=== PATIENT | female | born 1970 | race Caucasian/White ===

== ENCOUNTER 2016-10-28 18:04 | Observation (INO) | payer SELFPAY ==
--- NOTE | 2016-10-28 18:18 | ED Physician Documentation ---
General Adult - HISTORIAN Historian: patient (patient has a known history of alcohol dependency or a number of years. Patient was admitted to [facility] treatment program several years ago however only stayed for two weeks. Patient continues to drink vodka an unknown amount on a daily basis. Patient has been able to hold a job down. Patient has had some trimmers when she is withdrawn from alcohol previously. There is no history of DVT better-known from the family. Today the patient called [facility] to be admitted. However after she did that she started drinking heavily. On the way up to [facility] she continued to drink. Patient became beligerent trying to open the door and leave the car while it was moving. When the patient arrived at [facility] she was too intoxicated and agitated to be admitted. Patient referred to the ED for further evaluation.) - HPI Chief Complaint: Altered Mental Status Onset: hours Timing: still present Severity: moderate Modifying Factors: patient is not able to tell me how much alcohol should face on a daily basi Further Comments: yes - ROS CONST: denies: fever, chills CVS/RESP: none - PAST HX Past History: renal disease (Hep c taking Harvoni,), other (depression) Other History: other (patient denies any liver problems or other medical problems associated with alcoholism) Surgeries/Procedures: none (Bariatric surgery) Immunizations: referred to PCP Allergies/Adverse Reactions: Allergies Allergy/AdvReac Type Severity Reaction Status Date / Time No Known Allergies Allergy Verified 10/28/16 18:08 Home Medications: Ambulatory Orders Medication Instructions Recorded Cyclobenzaprine HCl [Flexeril] 10 mg PO TID PRN 10/28/16 Hydroxyzine Pamoate 50 mg PO TID 10/28/16 Ledipasvir/Sofosbuvir [Harvoni 1 each PO DAILY 10/28/16 90-400 mg Tablet] Pantoprazole Sodium [Protonix] 40 mg PO 0700 10/28/16 Sertraline HCl [Zoloft] 100 mg PO DAILY 10/28/16 - SOCIAL HX Smoking History: less than 1 pack/day (1/2 ppd) Alcohol Use: heavy Drug Use: marijuana, other (smoking crack) - FAMILY HX Family History: No - REVIEWED ASSESSMENTS Nursing Assessment Reviewed: Yes Vitals Reviewed: Yes Progress - Progress Progress: Patient was very intoxicated and belligerent on admission. Patient was somewhat combative. Initially patient was refusing to be admitted. Patient's family members were refusing to take her back home. She could not be admitted to long-term because she was not fit for confinement. Patient Stated that she was going to walk back to [place]. Patient was advised that it was close to 100 outside and that this is not a pardo idea. Patient continued to insist upon doing it. Patient appeared to be in danger of harming herself. After discussing the options with her family members it was elective for the patient a four- point restraint. Patient was monitored closely for any possible injury. Patient was given IV fluids. Patient then became calm and more ooperative and agrees to be admitted. The restraints were then removed. Patient remained cooperative. General Adult Physical Exam - PHYSICAL EXAM GENERAL APPEARANCE: aggitatd EENT: eye inspection normal, ENT inspection normal, pharynx normal NECK: normal inspection, thyroid normal, supple RESPIRATORY: no resp distress, chest non-tender CVS: reg rate & rhythm, heart sounds normal ABDOMEN: soft, no organomegaly, normal bowel sounds, no distension, non-tender SKIN: warm/dry, normal color EXTREMITIES: non-tender NEURO: CN's nml as tested Discharge Clincal Impression: Alcohol dependency Acute alcoholic intoxication Qualifiers: Complication of substance-induced condition: uncomplicated Qualified Code(s): F10.920 - Alcohol use, unspecified with intoxication, uncomplicated Home Medications: Ambulatory Orders Cyclobenzaprine HCl [Flexeril] 10 mg PO TID PRN 10/28/16 Hydroxyzine Pamoate 50 mg PO TID 10/28/16 Ledipasvir/Sofosbuvir [Harvoni 90-400 mg Tablet] 1 each PO DAILY 10/28/16 Pantoprazole Sodium [Protonix] 40 mg PO 0700 10/28/16 Sertraline HCl [Zoloft] 100 mg PO DAILY 10/28/16 Condition: Stable Decision to Admit: [id number] Date of Decison to Admit: 10/28/16 Decision Time: 21:00
[2016-10-28] MEDS ORDERED: THIAMINE HCL 100 MG/ML 2ML VIAL ONE (18:27)
[2016-10-28] MEDS ORDERED: 0.9 % SODIUM CHLORIDE 1,000 ML IV ONE ×2 (18:27→21:22)
[2016-10-28] MEDS ORDERED: MVI, ADULT NO.1 WITH VIT K 10 ML VIAL IV ONE (18:27)
[2016-10-28] MEDS ORDERED: FOLIC ACID 5 MG/1 ML ONE (18:27)
[2016-10-28] MEDS ORDERED: LORazepam 2 MG/ML VIAL IVP ONE ×2 (19:17→19:39)
[2016-10-28] MEDS ORDERED: LORazepam 2 MG/ML VIAL ONE (19:20)
[2016-10-28 19:33] LABS: BASOPHILS % 1.1 (0.0-1.5); EOSINOPHILS % 1.8 % (0.0-6.8); MEAN CORPUSCULAR HEMOGLOBIN 27.9 pg (28.0-34.0); MEAN CORPUSCULAR VOLUME 86.1 fl (80.0-100.0); MONOCYTES % 4.6 % (0.0-11.0); NEUTROPHILS # 3.8 # k/uL (1.4-7.7)
[2016-10-28 19:47] LABS: eGFR (African) > 60; eGFR (Non-African) > 60
[2016-10-28] MEDS: 0.9 % SODIUM CHLORIDE 1,000 ML IV SCH (20:19)
[2016-10-28 21:25] VITALS: BMI 30.1
[2016-10-28] MEDS ORDERED: THIAMINE HCL 100 MG, MVI, ADULT NO.1 WITH VIT K 10 ML, FOLIC ACID 5 MG in 0.9 % SODIUM ... IV SCH ×4 (23:00)
[2016-10-29] MEDS ORDERED: SERTRALINE HCL 50 MG TABLET ONE (05:28)
[2016-10-29] MEDS ORDERED: PANTOPRAZOLE SODIUM 40 MG TABLET ONE (05:28)
[2016-10-29] MEDS: 0.9 % SODIUM CHLORIDE 1,000 ML IV SCH (05:52)
[2016-10-29 05:55] VITALS: BP 124/85
[2016-10-29] MEDS ORDERED: PANTOPRAZOLE SODIUM 40 MG TABLET PO SCH (07:00)
[2016-10-29 08:48] LABS: eGFR (African) > 60; eGFR (Non-African) > 60
[2016-10-29] MEDS ORDERED: SERTRALINE HCL 50 MG TABLET PO SCH (09:00)
[2016-10-29] MEDS ORDERED: ACETAMINOPHEN 325 MG TABLET PO PRN (09:20)
[2016-10-29] MEDS ORDERED: CALCIUM CARB 500 MG TAB.CHEW ONE (09:21)
[2016-10-29] MEDS ORDERED: ACETAMINOPHEN 325 MG TABLET ONE (09:21)
--- NOTE | 2016-10-29 09:23 | History and Physical Report ---
History of Present Illnes - History of Present Illness Reason for Visit: Etoh intoxication and adgitation. History of Present Illness: 45 year old female admitted to the hospital through ER for acute intoxication and agitation. She initially presented to [facility] and was unable to corporate with the interview for admission due to acute intoxication. She was referred here for additional workup. In the emergency room she was very agitated and was given Ativan, and fluids. She was place in restraints for a short period of time as requested by the family. She was admitted to the floor for further observation overnight. At the time of the interview she is very corporative and able to discuss her medical and substance use history. She states [facility] use. She notes she called [facility] yesterday and then started drinking heavily. She continued to drink until she arrived at the facility. She states she has used alcohol for many years and was admitted to [facility] once previously. At that time she notes she only stayed for 2 weeks. She notes she wants to get clean this time and is hoping she can go to [facility] today to start that process. She notes she is having moderate reflux symptoms and a moderate headache this morning, but is feeling well otherwise and denies any other concerns today. - Past Medical History Cardiac: denies: HTN, Syncope, Hyperlipidemia Pulmonary: denies: Asthma, COPD [employer]ATOR: denies: Peripheral neuropathy Gastrointestinal: GERD (on protonix ), Other (Hepatitis C - on Harvoni). denies : Constipation Psych: Anxiety (takes vistaril ) Musculoskeletal: Other (Restless leg syndrome ) Infectious Disease: Other (Hepatitis C) ENT: denies: Sinusitis Renal/: denies: Chronic renal insuff Endocrine: denies: Diabetes, Hypothyroidism Dermatology: denies: Cellulitis - Past Surgical History Past Surgical History: Cholecystectomy, Other (gasrtic bypass) - Past Social History Smoke: No Alcohol: Heavy Drugs: None Lives: Alone Domestic Violence: Negative - Health Maintenance Health Maintenance: denies: Influenza Vaccine Influenza Vaccine: No (Patient declines at time of interview) Pneumonia Vaccine: No (Not of age, no comorbidities that would indicate earlier vaccination) Resuscitation Status: Resusciation Status Resuscitation Status Full Code Review of Systems - Review of Systems Constitutional: negative: Fever, Chills Eyes: negative: pain, vision change ENT: negative: Ear Pain, Ear Discharge Respiratory: negative: Cough, Shortness of Breath Cardiovascular: negative: Chest Pain Gastrointestinal: Nausea, Other (heart burn today - history of GERD). negative : Vomiting Genitourinary: negative: Dysuria Musculoskeletal: negative: Arm Pain, Leg Pain Skin: negative: Rash, Jaundice Neurological: negative: Weakness, Numbness, Incoordination, Confusion, Seizures - Medications/Allergies Allergies/Adverse Reactions: Allergies Allergy/AdvReac Type Severity Reaction Status Date / Time Sulfa (Sulfonamide Allergy Hives Verified 10/29/16 09:27 Antibiotics) Home Medications: Home Medications Cyclobenzaprine HCl [Flexeril] 10 mg PO TID PRN 10/28/16 Hydroxyzine Pamoate 50 mg PO TID 10/28/16 Ledipasvir/Sofosbuvir [Harvoni 90-400 mg Tablet] 1 each PO DAILY 10/28/16 Pantoprazole Sodium [Protonix] 40 mg PO 0700 10/28/16 Sertraline HCl [Zoloft] 100 mg PO DAILY 10/28/16 Current Inpatient Medications: Current Inpatient Medications Sodium Chloride (Normal Saline) 1,000 mls @ 100 mls/hr IV .Q10H [facility] Last Admin: 10/29/16 05:52 Dose: 100 mls/hr Pantoprazole Sodium (Protonix) 40 mg PO 07 [facility] Last Admin: 10/29/16 05:54 Dose: 40 mg Sertraline HCl (Zoloft) 100 mg PO DAILY [facility] Last Admin: 10/29/16 08:48 Dose: 100 mg Exam - Exam Vital Signs: Vital Signs (72 hours) 10/28/16 10/28/16 10/29/16 21:00 21:06 02:00 Temperature 98.2 F 97.6 F 98.4 F Pulse Rate [ 82 104 H 77 Right Pulse ox] Respiratory 16 18 18 Rate Blood Pressure 102/66 95/55 101/64 [Right Arm] O2 Sat by Pulse 98 95 96 Oximetry 10/29/16 10/29/16 05:54 09:00 Temperature 98.3 F Pulse Rate [ 92 H 92 H Right Pulse ox] Respiratory 16 16 Rate Blood Pressure 124/85 [Right Arm] O2 Sat by Pulse 96 Oximetry General: Alert, Oriented to Person, Oriented to Place, Oriented to Time, Cooperative HEENT: Atraumatic, EOMI, Nose Mucous membr. moist/[place], Dentition Normal Neck: Normal Range of Motion Lungs: Clear to auscultation, Normal air movement, Speaks full Sentences. No: Respiratory Distress Cardiovascular: Regular rate. No: Murmur Abdomen: Normal bowel sounds, Soft. No: No tenderness (MIld epigastric tenderness - HX GERD) Integumentary: Normal, [place], Warm, Dry. No: Jaundiced Extremities: No clubbing, No cyanosis, No edema, No tenderness/swelling Neurological: Normal gait, Normal speech, Strength Equal Bilat, Normal tone, Sensation intact Psych/Mental Status: Mental status NL, Mood NL, Appropriate Affect, Intact Judgment - Laboratory Results Laboratory Results: Laboratory Results 10/29/16 07:05 Sodium 142 Potassium 3.6 Chloride 115 H Carbon Dioxide 22 BUN 6 L Creatinine 0.5 Estimated Creat Clear 205 Est GFR ( Amer) > 60 Est GFR (Non-Af Amer) > 60 Glucose 86 Calcium 8.2 L Assessment/Plan - Assessment/Plan (1) Acute alcoholic intoxication Status: Acute Current Visit: Yes Qualifiers: Complication of substance-induced condition: uncomplicated Qualified Code(s ): F10.920 - Alcohol use, unspecified with intoxication, uncomplicated Assessment: Etoh level on admission was 402. Patient appears to be less intoxicated this morning and is very corporative. She appears ready to go to [facility] and is requesting discharge so that she may be admitted there. She has some symptoms of a hangover including heartburn and headache. She denies any other symptoms today. Plan: Fluids continuing today until discharge. Discharge to [facility] for additional treatment. (2) Alcohol dependency Status: Acute Current Visit: Yes Assessment: Patient is vague about her alcohol use but admits to heavy drinking for many years. She notes one prior admission to [facility] several years ago where she only stayed a short time. She notes she is motivated to quit this time. Plan: Patient to check into [facility] upon discharge for additional treatment. (3) Nausea Status: Acute Current Visit: Yes Assessment: Patient has a history of GERD compounded with hangover symptoms following significant alcohol intake has resulted in significant nausea and reflux symptoms today. Plan: Tums ordered PRN in additional to daily protonix. VTE Assessment - RISK FACTOR SCORE VTE RISK FACTOR SCORES: AGE 40-60 YEARS - RISK VTE LOW RISK: SCORE OF 1 OR LESS (RISK PROXIMAL DVT 0.4%) NO PROPHYLAXIS NEEDED
--- NOTE | 2016-10-29 09:39 | Discharge Summary ---
Discharge Summary - Discharge Sumary History of Present Illness: 45 year old female was admitted to the hospital for observation after arriving at [facility] acutely intoxicated and uncooperative. She was going to walk back to [place]. She is accompanied by her sister and brother-in -law. She was given fluids and ativan in the ER and was more cooperative by the time she arrived on the floor. This morning she is pleasant and is wanted to go back to [facility] to be admitted. She states she is having some heartburn and a headache this morning, but is otherwise feeling well. She notes a history of hepatitis C for which she is taking Harvoni. She also has a history of anxiety and depression, and GERD. She denies any other concerns today. Additional Instructions: Resume home medicaitons. Patient to go to [facility] by personal vehicle. Condition at Discharge: Stable Home Medications: Ambulatory Orders Medication Instructions Recorded Cyclobenzaprine HCl [Flexeril] 10 mg PO TID PRN 10/28/16 Hydroxyzine Pamoate 50 mg PO TID 10/28/16 Ledipasvir/Sofosbuvir [Harvoni 1 each PO DAILY 10/28/16 90-400 mg Tablet] Pantoprazole Sodium [Protonix] 40 mg PO 0700 10/28/16 Sertraline HCl [Zoloft] 100 mg PO DAILY 10/28/16 Consultations this Visit: None Procedures this Visit: None Allergies/Adverse Reactions: Allergies Allergy/AdvReac Type Severity Reaction Status Date / Time Sulfa (Sulfonamide Allergy Hives Verified 10/29/16 09:27 Antibiotics) Patient Problems: Current Active Problems Problem Status Onset Acute alcoholic intoxication Acute Alcohol dependency Acute Discharge Summary: Patient will be discharged on home medications. She is wanting to go to [facility] for rehabilitation for her drinking. [facility] was contacted and does have an open bed. She is to check in as a new admission upon discharge from hospital with medical clearance. Hospital Course: Patient was brought the ER by her family after she was deemed too intoxicated and uncorporative at [facility] for acute admission to their fascility. She was given fluids for rehydration, thiamine, and ativan for irritation in the ER. She was place in four point restratints for a short period of time as requested by family. After a short period she was much calmer and was admitted to the floor for overnight observation. She is requesting discharge so that she can be admitted to [facility] today. - Final Diagnosis (1) Acute alcoholic intoxication Problems: Patient is much calmer after IV fluids and time to sleep it off. She is feeling much better today. (2) Alcohol dependency Problems: Patient to check into [facility] today for further treatment.
[2016-10-29] MEDS ORDERED: CALCIUM CARB 500 MG TAB.CHEW PO SCH (10:00)
[2016-10-30 09:27] LABS: AMPHETAMINE NEGATIVE ng/mL (<1000); BARBITURATES NEGATIVE ng/mL (<300); CANNABINOIDS NEGATIVE ng/mL (< 50); COCAINE NEGATIVE ng/mL (<150); METHAMPHETAMINE NEGATIVE ng/mL (<1000); METHYLENEDIOXYMETHAMPHETAMINE NEGATIVE ng/mL (<500); MORPHINE NEGATIVE ng/mL (<300)
== END 2016-10-29 10:00 | disposition home or self-care (01) ==
LOC: ED 18:04 → SOUTH 20:36
PROVIDERS: ADMIT Physician Assistant; ATTEND Physician Assistant
DX: F10.229 Alcohol dependence with intoxication, unspecified (principal)
CPT/HCPCS: 80048; 80053; 80320; 85025; 96361; 96374; 96375; 96376; 99284; J2060; J3411; J3490; G0378; G0480; J7030; S1016